=== PATIENT | female | born 1990 | race American Indian/Alaskan Native ===

== ENCOUNTER 2021-09-10 17:02 | Emergency (ER) | payer OTHER ==
[2021-09-10 17:15] VITALS: BP 152/98
[2021-09-10 19:46] LABS: Bilirubin,Urine NEG (Negative); Blood,Urine NEG (Negative); Color,Urine Yellow (Yellow); Mucus,Urine FEW /HPF; Protein,Urine <15 mg/dL mg/dL (Negative); Urobilinogen,Urine < 2.0 mg/dL (<2.0); WBC,Urine < 1.0 /HPF (0.0-6.0)
[2021-09-10 19:59] LABS: HCG Qualitative,Urine Negative (Negative)
[2021-09-10] MEDS ORDERED: IBUPROFEN 800 MG TAB PO ONE (21:55)
--- NOTE | 2021-09-10 22:38 | XRay Report ---
LEFT HIP 3 VIEW(S) INDICATION / CLINICAL INFORMATION: left hip pain COMPARISON: None available. FINDINGS: BONES / JOINT(S): No acute displaced fracture or subluxation. There are degenerative changes of the p ubic symphysis which can be seen with osteitis pubis. SOFT TISSUES: No significant abnormality. ADDITIONAL FINDINGS: None. Signer Name: Tino Kern MD Signed: 09/10/2021 10:33 PM Workstation Name: [email or web address]
--- NOTE | 2021-09-11 01:28 | Emergency Department Report ---
ED General Adult HPI - General Chief complaint: Pain General Stated complaint: AMANDA/LEG PAIN Time Seen by Provider: 09/11/21 01:10 Source: EMS Mode of arrival: Stretcher Limitations: No Limitations - History of Present Illness Severity scale (0 -10): 10 - Related Data Previous Rx's Medication Instructions Recorded Last Taken Type Ketorolac [Toradol] 10 mg PO Q6H PRN #20 09/11/21 Unknown Rx Allergies Allergy/AdvReac Type Severity Reaction Status Date / Time No Known Allergies Allergy Verified 09/10/21 17:16 ED Review of Systems ROS: Stated complaint: AMANDA/LEG PAIN Other details as noted in HPI Comment: All other systems reviewed and negative ED Past Medical Hx - Surgical History Past Surgical History?: Yes Additional Surgical History: hysterectomy - Medications Home Medications: Home Medications Medication Instructions Recorded Confirmed Last Taken Type Ketorolac [Toradol] 10 mg PO Q6H PRN #20 09/11/21 Unknown Rx ED Physical Exam - General Limitations: No Limitations General appearance: alert, in no apparent distress - Head Head exam: Present: atraumatic, normocephalic - Eye Eye exam: Present: normal appearance, EOMI Pupils: Present: normal accommodation - ENT ENT exam: Present: normal exam, mucous membranes moist - Neck Neck exam: Present: normal inspection - Respiratory Respiratory exam: Present: normal lung sounds bilaterally. Absent: respiratory distress, rhonchi, accessory muscle use, decreased breath sounds - Cardiovascular Cardiovascular Exam: Present: regular rate, normal rhythm. Absent: systolic murmur, diastolic murmur, rubs, gallop - GI/Abdominal GI/Abdominal exam: Present: soft, normal bowel sounds. Absent: tenderness, guarding, hyperactive bowel sounds, hypoactive bowel sounds, organomegaly - Extremities Exam Extremities exam: Present: normal inspection, normal capillary refill, other (EncephalopathyWith patient with opposed flexion and a deduction. No bruising appreciated). Absent: full ROM, pedal edema, joint swelling - Back Exam Back exam: Present: normal inspection. Absent: tenderness, CVA tenderness (R), CVA tenderness (L) - Neurological Exam Neurological exam: Present: alert, oriented X3, CN II-XII intact, normal gait - Psychiatric Psychiatric exam: Present: normal affect, normal mood - Skin Skin exam: Present: warm, dry, intact, normal color. Absent: rash ED Course Vital Signs 09/10/21 17:15 Temperature 98.0 F Pulse Rate 88 Respiratory 18 Rate Blood Pressure 152/98 [Right] O2 Sat by Pulse 100 Oximetry Critical care attestation.: If time is entered above; I have spent that time in minutes in the direct care of this critically ill patient, excluding procedure time. ED Disposition Clinical Impression: Osteitis pubis, Strain of left groin Disposition: HOME / SELF CARE / HOMELESS Is pt being admited?: No Does the pt Need Aspirin: No Condition: Stable Instructions: Muscle Strain, How to Use Cold Therapy Additional Instructions: Osteitis pubis is defined as an idiopathic, inflammatory condition of the pubic symphysis and surrounding structures, but it is most likely related to overuse or trauma [1,2]. Osteitis pubis most commonly occurs among athletes but can also occur among non-athletes as a result of any pelvic stress (eg, trauma, pelvic surgery, ). This topic will discuss the epidemiology, diagnosis, and management of osteitis pubis. Other sports-related injuries and pelvic osteomyelitis are discussed elsewhere. (See "Sports-related groin pain or 'sports hernia'" and "Classification, clinical features, and diagnosis of inguinal and femoral hernias in adults" and "Pelvic osteomyelitis and other infections of the bony pelvis in adults".) ANATOMY Osteitis pubis is an inflammatory process involving the pubic symphysis and its surrounding attachments, including cartilage, ligaments, muscles, and the pubic rami (figure 1). The pubic symphysis is mainly composed of fibrocartilage and is a nonsynovial, nonvascular joint. The pubic symphysis is reliant on four ligaments to maintain its supportive integrity. Most of the strength and support arise from the superior and inferior ligaments, whereas the anterior and posterior ligaments are of less supportive importance. The pelvic floor musculature, composed of the levator ani and coccygeus, insert posteriorly at the pubic symphysis. The pectineus, rectus abdominis, and oblique externus muscles, as well as the inguinal ligament, insert near the superior portion of the pubic symphysis. The pubic rami give rise to several muscle origins: adductor pippa, adductor longus, adductor brevis, and gracilis. These muscles make up the adductors of the hip [3]. Prescriptions: Ketorolac [Toradol] 10 mg PO Q6H PRN #20 PRN Reason: Pain Referrals: [facility] [Provider Group] - 3-5 Days PRIMARY CARE,MD [Primary Care Provider] - 3-5 Days
== END 2021-09-11 02:02 | disposition home or self-care (01) ==
LOC: ED 17:02
DX: S39.011A Strain of muscle, fascia and tendon of abdomen, initial encounter (principal); M86.28 Subacute osteomyelitis, other site; X58.XXXA Exposure to other specified factors, initial encounter; Y93.89 Activity, other specified; Y92.89 Other specified places as the place of occurrence of the external cause; Y99.8 Other external cause status
CPT/HCPCS: 81001; 81025; 99284